=== PATIENT | female | born 1965 | race Two or more races ===

== ENCOUNTER → 2017-05-01 | Day surgery (SDC) | payer OTHER ==
[~2017-05-01] MED LIST: ASPIRIN81 M2 PO; DESYREL50 MG PO; LIPITOR20 MG PO; METFORMIN PO; OMEPRAZOLE40 M1 PO; REGLAN PO
--- NOTE | ~2017-05-01 | OR ---
Unit #: [id number] #: [id number] Patient: ALYSHA ALEMAN [id number] [address] [address] [id number] MR#: [id number] NAME: ALYSHA ALEMAN ROOM: Date of Procedure: 05/01/2017 Admission Date: 05/01/2017 Surgeon: Farrukh Young M.D. : 1965 Attending Physician: Farrukh Young M.D. Referring Physician: Farrukh Young M.D. Primary Care Physician: Juventino Nesbitt M.D. OPERATIVE REPORT PROCEDURE PERFORMED Esophagogastroduodenoscopy with biopsy. INDICATIONS FOR PROCEDURE Epigastric pain, dyspepsia, bloating, and GERD symptoms, undergoing evaluation with upper endoscopy. MEDICATIONS Monitored anesthesia. POSTOPERATIVE FINDINGS 1. Small hiatal hernia. 2. Mild gastritis. Biopsies taken. 3. Normal duodenum and distal duodenum. PLAN Follow up on pathology report. Continue PPI therapy and diet as advised. DESCRIPTION OF PROCEDURE The patient was explained of the procedure risks and benefits along with risks and benefits of anesthesia. She was brought to the endoscopy room. Propofol anesthesia was given. Bite block was placed. The scope was passed down the mouth into esophagus, stomach, duodenum, and distal duodenum. Findings as described. Biopsies taken. Gently, I pulled the scope out of the patient's mouth. She tolerated it well. Dictated by... Esa Chahal/olegario TD: 05/01/2017 15:48 JOB #: [id number] CC: Juventino Nesbitt M.D. Unit #: [id number] #: [id number] Patient: ALYSHA ALEMAN OPERATIVE REPORT Page 1 of 1 X Farrukh Young MD X PROCEDURE OPERATIVE NOTE
== END | disposition home or self-care (01) ==
LOC: COPS 07:14
DX: K29.50 Unspecified chronic gastritis without bleeding (principal); K44.9 Diaphragmatic hernia without obstruction or gangrene; E11.9 Type 2 diabetes mellitus without complications; E78.5 Hyperlipidemia, unspecified; Z79.82 Long term (current) use of aspirin; Z79.84 Long term (current) use of oral hypoglycemic drugs; Z79.899 Other long term (current) drug therapy; Z90.49 Acquired absence of other specified parts of digestive tract
CPT/HCPCS: 82947; 84703; 88305; 88312